=== PATIENT | male | born 2000 | race Hispanic/Latino ===

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

== ENCOUNTER 2020-01-13 09:53 | Emergency (ER) | payer BC ==
[~2020-01-13] VITALS: Ht 170.2 cm; Wt 108.9 kg
[~2020-01-13 09:53] MED LIST changes: -IOPAMIDOL 370 MG/ML 200 ML INFUS..BTL INJ ONE; -SODIUM CHLORIDE 0.9% 50ML 50 ML ONE
--- NOTE | 2020-01-13 11:07 | Emergency Department Note ---
History of Present Illnes History of Present Illness Chief Complaint: COVID PUI History of Present Illness This is a 19 year old male C CC SORE THROAT AND WEAKNESS . Onset (how long ago): day(s) (1) Location: THROAT Quality: DULL Radiation: Denies non-radiation, Denies back, Denies neck, Denies extremity, Denies abdomen, Denies periumbilical, Denies flank, Denies proximal, Denies distal, Denies other Severity: mild Onset quality: gradual Duration (how long): day(s) (1) Timing of current episode: constant Progression: improving Chronicity: new Context: Denies recent illness, Denies recent surgery, Denies recent immobilization, Denies recent travel, Denies trauma/injury, Denies new medications, Denies hx of DVT/PE, Denies non-compliance w/ medications, Denies other Relieving factors: none Exacerbating factors: none Associated symptoms: Reports denies other symptoms Past Medical/Family History Physician Review I have reviewed the patient's past medical and family history. Any updates have been documented here. Past Medical History Past Medical History: None Other Medical History: CONCUSIONS X2 Past Surgical History: None Social History Smoking Cessation: Never Smoker Alcohol Use: None Other Last Tetanus: utd Review of Systems Review of Systems Constitutional: Reports no symptoms EENTM: Reports as per HPI Cardiovascular: Reports no symptoms Respiratory: Reports no symptoms Gastrointestinal: Reports no symptoms Genitourinary: Reports no symptoms Musculoskeletal: Reports no symptoms Integumentary: Reports no symptoms Neurological: Reports no symptoms Psychological: Reports no symptoms Endocrine: Reports no symptoms Hematological/Lymphatic: Reports no symptoms Physical Exam Related Data Allergies: Coded Allergies: No Known Allergies (Unverified , 03/26/15) Vital signs reviewed: Yes Physical Exam CONSTITUTIONAL Constitutional: Present well-developed, Present well-nourished HENT HENT: Present normocephalic, Present atraumatic, Present oropharynx clear/moist, Present nose normal, Present erythema HENT L/R: Present left ext ear normal, Present right ext ear normal EYES Eyes: Reports PERRL, Reports conjunctivae normal NECK Neck: Present ROM normal PULMONARY Pulmonary: Present effort normal, Present breath sounds normal CARDIOVASCULAR Cardiovascular: Present regular rhythm, Present heart sounds normal, Present ca pillary refill normal, Present normal rate GASTROINTESTINAL Abdominal: Present soft, Present nontender, Present bowel sounds normal GENITOURINARY Genitourinary: Present exam deferred SKIN Skin: Present warm, Present dry MUSCULOSKELETAL Musculoskeletal: Present ROM normal NEUROLOGICAL Neurological: Present alert, Present oriented x 3, Present no gross motor or sensory deficits PSYCHOLOGICAL Psychological: Present mood/affect normal, Present judgement normal Assessment & Plan Medical Decision Making MDM PHARYNGITIS Reassessment Reassessment time: 11:06 Reassessment BETTER Assessment & Plan Final Impression: (1) Weakness (2) Pharyngitis Depart Disposition: HOME, SELF-skilled nursing Meds Reported Medications [No Meds] No Conflict Check 08/24/14 ESTEPHANIE GEORGES MD Jan 13, 2020 11:07
[2020-01-13] MEDS ORDERED: KEFLEX500 MG PO (11:08)
== END 2020-01-13 11:39 | disposition home or self-care (01) ==
LOC: FSED 10:44
DX: J02.9 Acute pharyngitis, unspecified (principal); R53.1 Weakness
CPT/HCPCS: 99282

== ENCOUNTER 2020-04-25 17:31 | Emergency (ER) | payer BC ==
[~2020-04-25] VITALS: Ht 170.2 cm; Wt 90.7 kg
[~2020-04-25 17:31] MED LIST changes: +KEFLEX500 MG PO
--- NOTE | 2020-04-25 18:40 | Emergency Department Note ---
History of Present Illnes History of Present Illness Chief Complaint: Flu Like Symptoms History of Present Illness This is a 19 year old male Chief Complaint Comment Patient in from home with complaints of fever, fatigue and cough that started about 3 days ago. Patient denies N/V/D and changes to taste and smell. No respiratory distress noted. Patient has had a recent exposure to a family friend with covid. Historian: Patient Arrival Mode: Car Past Medical/Family History Physician Review I have reviewed the patient's past medical and family history. Any updates have been documented here. Past Medical History Recent Fever: Yes Clinical Suspicion of Infectio: No New/Unexplained Change in Ment: No Past Medical History: None Other Medical History: CONCUSIONS X2 Past Surgical History: None Other Last Tetanus: utd Review of Systems Review of Systems Constitutional: Reports as per HPI, Reports fever EENTM: Reports as per HPI, Reports nose congestion Cardiovascular: Reports no symptoms Respiratory: Reports no symptoms Gastrointestinal: Reports no symptoms Genitourinary: Reports no symptoms Musculoskeletal: Reports no symptoms Integumentary: Reports no symptoms Neurological: Reports no symptoms Psychological: Reports no symptoms Endocrine: Reports no symptoms Hematological/Lymphatic: Reports no symptoms Physical Exam Related Data Allergies: Coded Allergies: No Known Allergies (Unverified , 03/26/15) Triage Vital Signs Vital Signs Date Time Temp Pulse Resp B/P (MAP) Pulse Ox O2 Delivery O2 Flow Rate FiO2 04/25/20 18:29 102.3 110 18 139/72 100 Vital signs reviewed: Yes Physical Exam CONSTITUTIONAL Constitutional: Present well-developed, Present well-nourished HENT HENT: Present normocephalic, Present atraumatic, Present oropharynx clear/moist, Present nose normal HENT L/R: Present left ext ear normal, Present right ext ear normal EYES Eyes: Reports PERRL, Reports conjunctivae normal NECK Neck: Present ROM normal PULMONARY Pulmonary: Present effort normal, Present breath sounds normal CARDIOVASCULAR Cardiovascular: Present regular rhythm, Present heart sounds normal, Present capillary refill normal, Present normal rate GASTROINTESTINAL Abdominal: Present soft, Present nontender, Present bowel sounds normal GENITOURINARY Genitourinary: Present exam deferred SKIN Skin: Present warm, Present dry MUSCULOSKELETAL Musculoskeletal: Present ROM normal NEUROLOGICAL Neurological: Present alert, Present oriented x 3, Present no gross motor or sensory deficits PSYCHOLOGICAL Psychological: Present mood/affect normal, Present judgement normal Assessment & Plan Medical Decision Making [facility] 19 y.o M presents for cough, fever, URI symptoms. Exam shows fever, otherwise well appearing. Flu/COVID swab sent. Will DC home with work note for 10 days. Suspect COVID. Doubt emergent process at this time. I discussed results patient as well as expected disease time course and management. They will follow up with their primary care provider or return to the emergency department for new or worsening symptoms. Patient's appropriate for discharge. Assessment & Plan Final Impression: (1) Suspected 2019 novel coronavirus infection Depart Disposition: HOME, SELF-CARE Last Vital Signs Date Time Temp Pulse Resp B/P (MAP) Pulse Ox O2 Delivery O2 Flow Rate FiO2 04/25/20 18:29 102.3 110 18 139/72 100 Home Meds Active Scripts Cephalexin Monohydrate (KEFLEX) 500 Mg Capsule, 500 MG PO TID, #21 TAB 0 Refills Prov:ESTEPHANIE GEORGES MD 01/13/20 Reported Medications [No Meds] No Conflict Check 08/24/14 Medications in the ED Acetaminophen 975 mg ONCE ONCE PO ; Start 04/25/20 at 18:45; Stop 04/25/20 at 18:46; Status UNV ANAM HOWE MD Apr 25, 2020 18:40
--- OUTSIDE RECORDS SUMMARY | 2020-04-25 18:43 | XMS REPORT | Continuity of Care Document ---
Author Author [facility] t Organization [facility] Address [address] [place] [address] Phone Unavailable Care Team Providers Care Oracle Endeca Consultant Name Role Phone RABIA CONNELL, MD REID PCP SUZY KEYS Attphys Unavailable Yashira TAM Attphys Unavailable Antonette ANDINO Attphys Unavailable Payers Payer Name Policy Type Policy Number Effective Date Expiration Date S odalis [employer] [facility] [id number] 2015 00:00:00 [facility] Problems Condition Name Condition Details Condition Category Status Onset Date Resolution Date Last Treatment Date Treating Clinician Comments Source Upper respiratory tract infection Upper respiratory infection Problem Active [facility] Weakness Problem Active [facility] Pharyngitis Problem Active [facility] Allergies, Adverse Reactions, Alerts This patient has no known allergies or adverse reactions. Social History Social Habit Start Date Stop Date Quantity Comments Source Sex Assigned At 2000 00:00:00 2000 00:00:00 Male [facility] Medications Ordered Medication Name Filled Medication Name Start Date Stop Da te Current Medication? Ordering Clinician Indication Dosage Frequency Signature (SIG) Comments Components Source Cephalexin Monohydrate (Keflex) 500 Mg CAPSULE Cephale juan francisco Monohydrate (Keflex) 500 Mg CAPSULE 2020-01-13 11:08:00 Yes 500 Three Jelani es A Day [facility] Vital Signs Vital Name Observation Time Observation Value Comments Source Weight 2020-01-13 10:28:00 240 [lb_av] [facility] BMI (Body Mass Index) 2020-01-13 10:28:00 37.6 kg/m2 [facility] Procedures This patient has no known procedures. Plan of Care Planned Activity Planned Date Details Comments Source Instructions Bronchitis (Acute) - Adult C [facility] Encounters Start Date/Time End Date/Time Encounter Type Admission Type [facility] Care Department Encounter ID Source 2020-01-13 10:44:00 2020-01-13 11:39:00 Departed Emergency Room [facility] [id number] [facility] 2017-[facility]-10 14:00:00 2017-08-10 20:12:00 Departed Emergency Room ER [facility] [id number] [facility] 2017-04-20 19:32:00 2017-04-20 23:10:00 Departed Emergency Room ER ANDINO BRANDI [facility] [id number] [facility] Results Test Description Test Time Test Comments Results Result Comments Source Creatine Kinase MB 2017-08-10 19:05:00 Test Item Creatine Kinase MB (test code = 58237-3) 2.10 0.00-5.00 [facility] Center[facility] [id number] 19:05:00* Test Item Value Reference Range Interpretation Comments Troponin I (test code = 03310-7) 0.007 0-0.300 [facility] Lanrd9181-41-11 18:52:00* Test Item Value Reference Range Interpretation Comments Sodium Level (test code = 2951-2) 141 136-145 [facility] CenterPotassium Jhhxp1421-57-68 18:52:00* Test Item Value Reference Range Interpretation Comments Potassium Level (test code = 2823-3) 3.5 3.5-5.1 [facility] CenterChloride Hdipn0849-03-36 18:52:00* Test Item Value Reference Range Interpretation Comments Chloride Level (test code = 2075-0) 105 98-107 [facility] CenterCarbon Dioxide Dldok9998-92-38 18:52:00* Test Item Value Reference Range Interpretation Comments Carbon Dioxide Level (test code = 2028-9) 25 22-29 [facility] CenterAnion Eyk1129-08-16 18:52:00* Test Item Value Reference Range Interpretation Comments Anion Gap (test code = 20287-9) 14.5 8-16 [facility] CenterBlood Urea Zbbjufwp2163-19-86 18:52:00* Test Item Value Reference Range Interpretation Comments Blood Urea Nitrogen (test code = 3094-0) 9 7-26 [facility] CenterCreatinine2018-02-05 18:52:00* Test Item Value Reference Range Interpretation Comments Creatinine (test code = 2160-0) 0.85 0.72-1.25 [facility] CenterBUN/Creatinine Jinxl4005-22-54 18:52:00* Test Item Value Reference Range Interpretation Comments BUN/Creatinine Ratio (test code = 3097-3) 11 6-25 [facility] CenterEstimat Glomerular Filtration Rate 2017-08-10 18:52:00* Test Item Value Reference Range Interpretation Comments Estimat Glomerular Filtration Rate (test code = 08804-6) 60- >60 Ranges were taken from the National Kidney Disease Education Program and the [facility] [employer] literature.Reference ranges:60 or greater: Htuyct86-89 ( for 3 consecutive months): Chronic kidney disease 15 or less: Kidney failurePalestine Regional Medical CenterGlucose Lrwln9451-83-45 18:52:00* Test Item Value Reference Range Interpretation Comments Glucose Level (test code = KSD0152) 121 74-118 H [facility] CenterCalcium Zvfxd5468-74-16 18:52:00* Test Item Value Reference Range Interpretation Comments Calcium Level (test code = 81553-0) 9.5 8.4-10.2 [facility] CenterTotal Koooxgxda5438-03-51 18:52:00* Test Item Value Reference Range Interpretation Comments Total Bilirubin (test code = 1975-2) 0.7 0.2-1.2 [facility] CenterAspartate Amino Transf (AST/SGOT) 2017-08-10 18:52:00* Test Item Value Reference Range Interpretation Comments Aspartate Amino Transf (AST/SGOT) (test code = Aspartate Amino Transf (AST/SGOT)) 28 5-34 [facility] CenterAlanine Aminotransferase (ALT/SGPT) 2017-08-10 18:52:00* Test Item Value Reference Range Interpretation Comments Alanine Aminotransferase (ALT/SGPT) (test code = 1742-6) 27 0-55 [facility] CenterTotal Xldfzwi6164-50-06 18:52:00* Test Item Value Reference Range Interpretation Comments Total Protein (test code = 2885-2) 8.0 6.5-8.1 [facility] CenterAlbumin2018-02-05 18:52:00* Test Item Value Reference Range Interpretation Comments Albumin (test code = 1751-7) 4.6 3.5-5.0 [facility] CenterGlobulin2018-02-05 18:52:00* Test Item Value Reference Range Interpretation Comments Globulin (test code = 34423-9) 3.4 2.3-3.5 [facility] CenterAlbumin/Globulin Revnv3041-75-12 18:52:00 * Test Item Value Reference Range Interpretation Comments Albumin/Globulin Ratio (test code = 1759-0) 1.4 0.8-2.0 [facility] CenterAlkaline Blcnkutoypx5429-57-10 18:52:00* Test Item Value Reference Range Interpretation Comments Alkaline Phosphatase (test code = 6768-6) 83 40-150 [facility] CenterCreatine Ektgua2976-01-35 18:52:00* Test Item Value Reference Range Interpretation Comments Creatine Kinase (test code = 2157-6) 765 30-200 H [facility] CenterWhite Blood Rxfks7176-88-22 18:36:00* Test Item Value Reference Range Interpretation Comments White Blood Count (test code = 6690-2) 13.67 4.8-10.8 H [facility] CenterRed Blood Velfq1763-39-99 18:36:00* Test Item Value Reference Range Interpretation Comments Red Blood Count (test code = 789-8) 4.98 4.3-5.7 [facility] CenterHemoglobin2018-02-05 18:36:00* Test Item Value Reference Range Interpretation Comments Hemoglobin (test code = 83123-5) 14.2 14.0-18.0 [facility] CenterHematocrit2018-02-05 18:36:00* Test Item Value Reference Range Interpretation Comments Hematocrit (test code = 4544-3) 42.9 38.2-49.6 [facility] CenterMean Corpuscular Xbzsmr2563-98-57 18:36:00* Test Item Value Reference Range Interpretation Comments Mean Corpuscular Volume (test code = 787-2) 86.1 81-99 [facility] CenterMean Corpuscular Evpichegdk2878-66-61 18:36:00* Test Item Value Reference Range Interpretation Comments Mean Corpuscular Hemoglobin (test code = 785-6) 28.5 28-32 [facility] CenterMean Corpuscular Hemoglobin Concent 2017-08-10 18:36:00* Test Item Value Reference Range Interpretation Comments Mean Corpuscular Hemoglobin Concent (test code = 786-4) 33.1 31-35 [facility] CenterRed Cell Distribution Vftac9747-52-96 18:36:00* Test Item Value Reference Range Interpretation Comments Red Cell Distribution Width (test code = 21530-8) 13.7 11.7 -14.4 [facility] CenterPlatelet Zfnxk2996-64-04 18:36:00* Test Item Value Reference Range Interpretation Comments Platelet Count (test code = 777-3) 363 140-360 H [facility] CenterNeutrophils (%) (Auto)2017-08-10 18:36:00 * Test Item Value Reference Range Interpretation Comments Neutrophils (%) (Auto) (test code = 58819-2) 75.9 38.7-80.0 [facility] CenterLymphocytes (%) (Auto)2017-08-10 18:36:00 * Test Item Value Reference Range Interpretation Comments Lymphocytes (%) (Auto) (test code = 736-9) 17.0 18.0-39.1 L [facility] CenterMonocytes (%) (Auto)2017-08-10 18:36:00* Test Item Value Reference Range Interpretation Comments Monocytes (%) (Auto) (test code = 5905-5) 5.0 4.4-11.3 [facility] CenterEosinophils (%) (Auto)2017-08-10 18:36:00 * Test Item Value Reference Range Interpretation Comments Eosinophils (%) (Auto) (test code = 713-8) 1.6 0.0-6.0 [facility] CenterBasophils (%) (Auto)2017-08-10 18:36:00* Test Item Value Reference Range Interpretation Comments Basophils (%) (Auto) (test code = 706-2) 0.1 0.0-1.0 [facility] CenterIM GRANULOCYTES %2017-08-10 18:36:00* Test Item Value Reference Range Interpretation Comments IM GRANULOCYTES % (test code = IM GRANULOCYTES %) 0.4 0.0- 1.0 [facility] CenterNeutrophils # (Auto)2017-08-10 18:36:00* Test Item Value Reference Range Interpretation Comments Neutrophils # (Auto) (test code = 751-8) 10.4 2.1-6.9 H [facility] CenterLymphocytes # (Auto)2017-08-10 18:36:00* Test Item Value Reference Range Interpretation Comments Lymphocytes # (Auto) (test code = 10620-7) 2.3 1.0-3.2 [facility] CenterMonocytes # (Auto)2017-08-10 18:36:00* Test Item Value Reference Range Interpretation Comments Monocytes # (Auto) (test code = 742-7) 0.7 0.2-0.8 [facility] CenterEosinophils # (Auto)2017-08-10 18:36:00* Test Item Value Reference Range Interpretation Comments Eosinophils # (Auto) (test code = 711-2) 0.2 0.0-0.4 [facility] CenterBasophils # (Auto)2017-08-10 18:36:00* Test Item Value Reference Range Interpretation Comments Basophils # (Auto) (test code = 704-7) 0.0 0.0-0.1 [facility] CenterAbsolute Immature Granulocyte (auto 2017-08-10 18:36:00* Test Item Value Reference Range Interpretation Comments Absolute Immature Granulocyte (auto (misael t code = Absolute Immature Granulocyte (auto) 0.06 0-0.1 [facility] CenterCT CHEST W [facility] [address] [address] Patient Name: JOSE HELM MR #: [id number] : 2000 Age/Sex: 17/M Req #: [id number] Adm Physician: Ordered by: SUZY KEYS MD Report #: [id number] Location: [facility] Room/Bed: Procedure: [id number] CT/CT CHEST W Exam Date: 03/23 Exam Time: 1700 REPORT STATUS: Signed E XAM: CT Chest WITH contrast (PE Protocol) INDICATION: COMPARI SON: None TECHNIQUE: Chest was scanned utilizing a multidetector helical scanner from the lung apex through the level of the diaphragm after administra tion of IV contrast. Thin section reconstructions were obtained with special c oncentration on the pulmonary arteries. Coronal and sagittal reformations were obtained. Pulmonary embolism protocol was performed. IV CONTRAST: 100 mL of Isovue-370 COMPLICATIONS: None RADIATION DOSE: Total DLP : 526.65 mGy*cm Estimated effective dose: (DLP x 0.014 x size factor) mSv CTDIvol has been reviewed. It is below the limits set by the Radiation Protocol Committee (RPC). FINDINGS: LINES/ TUBES: None. LUNGS AN D AIRWAYS: No filling defect is identified within the pulmonary arteries to th e segmental level. The lungs are unremarkable. Airways are normal. PLEU RA: The pleural spaces are clear. HEART AND MEDIASTINUM: The visualized thy roid gland is normal. No mediastinal, hilar or axillary lymphadenopathy. Resi dual thymic tissue in the anterior mediastinum. The heart is normal in size. T here is no pericardial effusion. . Main pulmonary artery measures 2.8 cm in diameter and the ascending aorta measures 2.1 cm. UPPER ABDOMEN: Unrem arkable BONES: The visualized bony thorax is within normal limits. SOF T TISSUES: Unremarkable. IMPRESSION: No pulmonary emboli. Signed by : Dr. Cassius Daigle MD on 09/11/2017 6:07 PM Dictated By: CASSIUS DAIGLE MD 06 Transcribed By: Patsy NICHOLSON on 09/11/171806 COPY TO: SUZY KEYS MD CHEST 2 V[address] [address] Patient Name: JOSE HELM MR #: [id number] : 2000 Age/Sex: 17/M Req #: [id number] Adm Physician: Ordered by: TREY LAKE PLUNGER MACHINE OPERATOR Report #: [id number] Location: ER Room/B ed: Procedure: [id number] DX/CHEST 2 VIEWS Exam Date: 08/10/17 Exam Time: 1540 REPORT STATUS: Signed PROCEDURE: Frontal and lateral views of the chest. COMPARISON: None. INDICATIONS: CHEST PAIN WITH SOB FINDINGS: Lines/tubes: No ne. Lungs: The lungs are well inflated and clear. There is no evidence of pneumonia or pulmonary edema. Pleura: There is no pleural effusion or pneumothorax. Heart and mediastinum: The heart and the mediastinum are n ormal. Bones: No acute bony abnormality. IMPRESSION: 1. No acute cardiopulmonary disease. Dictated by: Eun Maya M.D. on 2017 at 16:43 Electronically approved by: Eun Maya M.D. on 018 at 16:43 Dictated By: EUN MAYA MD 42 Transcribed By: GAVIOTA on 1642 COPY TO: TREY [employer]UNGER MACHINE OPERATOR KNEE RIGHT THREE VIEWS [facility] [address] [place] [address] Patient Name: JOSE HELM MR #: [id number] : 2000 Age/Sex: 16/M Req #: [id number] Adm Physician: Ordered by: BRANDI ANDINO MD Report #: [id number] Location: [facility]rad cordero/Bed: Procedure: [id number] DX/KNEE RIGHT THREE VIE WS Exam Date: 04/20/17 Exam Time: 2024 REPORT STATUS: Signed KNEE RIGHT THREE VIEWS HISTORY: Pain COMPARISON: No ne FINDINGS: Bones: No displaced fracture. Osseous alignment i s within normal limits. Joints: The joint spaces are well-maintained. Soft tissues: The soft tissues appear unremarkable. IMPRESSION: N o acute radiographic abnormality. Signed by: Dr. Tyrell Olivo M.D. on 04/20 9:15 PM Dictated By: TYRELL FALK MD 14 Transcribed By: OLIVER on 2114 COPY TO: BRANDI ANDINO MD
[2020-04-25] MEDS ORDERED: ACETAMINOPHEN 325 MG TAB PO ONE (18:45)
== END 2020-04-25 18:51 | disposition home or self-care (01) ==
LOC: ER 18:40
DX: U07.1 COVID-19 (principal)
CPT/HCPCS: 87400; 99282; U0002

== ENCOUNTER → 2020-09-25 | Outpatient (CLI) | payer BC, OTHER ==
[~2020-09-25] MED LIST changes: +BUPIVACAINE HCL 0.5% INJ 30 ML VIAL INJ ONE; +COVID-19 VACC, MRNA(MODERNA)/PF 100 MCG/0.5 ML VIAL IM ONE; +DEXAMETHASONE SOD PHOS INJ 4 MG/ML VIAL ONE; +NEOSTIGMINE 1 MG/ML 10ML VIAL ONE
== END | disposition home or self-care (01) ==
LOC: VACCPMC 18:19
DX: Z23 Encounter for immunization (principal); Z20.822 Contact with and (suspected) exposure to COVID-19
CPT/HCPCS: 0011A; 91301

== ENCOUNTER → 2020-10-23 | Outpatient (CLI) | payer BC, OTHER ==
[~2020-10-23] MED LIST changes: -BUPIVACAINE HCL 0.5% INJ 30 ML VIAL INJ ONE; -DEXAMETHASONE SOD PHOS INJ 4 MG/ML VIAL ONE; -NEOSTIGMINE 1 MG/ML 10ML VIAL ONE
== END | disposition home or self-care (01) ==
LOC: VACCPMC 10-22 10:02
DX: Z23 Encounter for immunization (principal); Z20.822 Contact with and (suspected) exposure to COVID-19
CPT/HCPCS: 91301

== ENCOUNTER 2021-01-01 10:15 | Emergency (ER) | payer BC, OTHER ==
[~2021-01-01] VITALS: Ht 167.6 cm; Wt 111.2 kg
[~2021-01-01 10:15] MED LIST changes: -COVID-19 VACC, MRNA(MODERNA)/PF 100 MCG/0.5 ML VIAL IM ONE
[2021-01-01] MEDS ORDERED: AUGMENTIN 500-1 EACH PO (10:34)
== END 2021-01-01 10:39 | disposition home or self-care (01) ==
LOC: FSED 10:30
DX: H66.91 Otitis media, unspecified, right ear (principal); I88.9 Nonspecific lymphadenitis, unspecified
CPT/HCPCS: 99282

== ENCOUNTER 2022-09-07 08:29 | Emergency (ER) | payer BC ==
[~2022-09-07] VITALS: Ht 170.2 cm; Wt 114.9 kg
[~2022-09-07 08:29] MED LIST changes: +AUGMENTIN 500-1 EACH PO; +OFLOXACIN5 ML LEFT EAR
[2022-09-07] MEDS ORDERED: OFLOXACIN5 ML RIGHT EAR (09:06)
[2022-09-07] MEDS ORDERED: IBUPROFEN200 MG PO (09:06)
[2022-09-07] MEDS ORDERED: CEFDINIR300 MG PO (09:06)
[2022-09-07] MEDS ORDERED: NASACORT16.9 ML (09:43)
== END 2022-09-07 09:59 | disposition home or self-care (01) ==
LOC: FSED 09:05
DX: H60.91 Unspecified otitis externa, right ear (principal); H66.91 Otitis media, unspecified, right ear
CPT/HCPCS: 99283